=== PATIENT | male | born 1955 | race Two or more races ===

== ENCOUNTER 2023-08-16 13:49 | Emergency (ER) | payer OTHER, MEDICAID ==
[~2023-08-16] VITALS: Ht 157.5 cm; Wt 60.9 kg
[2023-08-16 20:36] VITALS: BP 120/72; PULSE 73; RESP 18; TEMP 98; O2SAT 98
== END 2023-08-16 20:45 | disposition home or self-care (01) ==
LOC: ER 13:49
DX: S00.03XA Contusion of scalp, initial encounter (principal); E11.9 Type 2 diabetes mellitus without complications; E78.5 Hyperlipidemia, unspecified; Z87.891 Personal history of nicotine dependence; W11.XXXA Fall on and from ladder, initial encounter; Y93.89 Activity, other specified; Y92.89 Other specified places as the place of occurrence of the external cause; Y99.8 Other external cause status
CPT/HCPCS: 70450; 72125